=== PATIENT | female | born 1995 | race Caucasian/White ===

== ENCOUNTER 2018-12-30 07:36 | Outpatient (CLI) | payer OTHER ==
--- NOTE | 2018-12-30 09:09 | ULT ---
RIGHT UPPER QUADRANT ULTRASOUND: Date: 01-17-15, 12-30-18 Comparison: None. History: Transaminitis. Technique: Multiplanar grayscale sonographic imaging of the right upper quadrant obtained. FINDINGS: Imaged pancreas is grossly unremarkable, the tail partially obscured by bowel gas. No focal liver lesion or intrahepatic biliary dilatation is noted. The hepatic parenchyma is mildly e chogenic, suggesting a degree of hepatocellular disease, such as possible steatosis. There is a 1.1 c m echogenic focus with shadowing within the right lobe of the liver suggesting a granuloma. The patie nt is status post cholecystectomy. The common bile duct is dilated, measuring 8 mm. Right kidney thuy ure 10.8 cm craniocaudal dimension and demonstrates no stone, hydronephrosis or mass lesion. The prior right upper quadrant ultrasound performed 01-17-15 demonstrated a common bile duct of 4-5 mm in diameter. IMPRESSION: Status post cholecystectomy. Dilated common bile duct. This is more prominent than on the 01-17-15 exa mination at which time the CBD measured 5 mm. This could be reservoir affect associated with prior ch olecystectomy or could be on the basis of biliary dilatation on the basis of biliary obstruction. Cli nical correlation is essentially. If further imaging assessment is required, MRI/MRCP suggested. POS: [facility]
--- NOTE | 2018-12-30 09:27 | CT ---
CT ABDOMEN NONCONTRAST CT PELVIS NONCONTRAST: (urolithiasis protocol) DATE: 12/30/18 TIME: 0756 hours HISTORY: 23-year-old female with diagnosis of calculus of kidney and intermittent right-sided abdominal pain for a few weeks. COMPARISON: 03/02/15 CT with contrast. TECHNIQUE: IV injection of iodinated contrast media: none Oral contrast media: none FINDINGS: Other than for urolithiasis, the lack of IV and oral contrast limits the evaluation. Again noted are the cholecystectomy clips and the focal coarse calcification in the right lobe of the liver. No renal, ureteral, or bladder calculus is identified. No hydronephrosis. Appendix is not deon ntified with certainty. No signs of acute colonic diverticulitis, small bowel dilation, ascites, or p neumoperitoneum. Lung bases are grossly clear. Within the limitations of a noncontrast scan, no other abnormality is identified involving liver, abdominal aorta, kidneys, adrenals, pancreas, or spleen. IMPRESSION: 1. No urolithiasis or obstructive uropathy. 2. Status post cholecystectomy. 3. Focal dystrophic calcification in right lobe of liver. JN R POS: [facility]
== END 2018-12-30 07:37 | disposition home or self-care (01) ==
LOC: BICCT 07:36
PROVIDERS: ATTEND Family Medicine
DX: R74.0 Nonspecific elevation of levels of transaminase and lactic acid dehydrogenase [LDH] (principal); N20.0 Calculus of kidney; K76.89 Other specified diseases of liver; K83.8 Other specified diseases of biliary tract; Z90.49 Acquired absence of other specified parts of digestive tract
CPT/HCPCS: 74176; 76705

== ENCOUNTER 2020-05-19 06:33 | Outpatient (CLI) | payer OTHER ==
[2020-05-20 12:37] LABS: SARS-CoV-2 MS2 Positive; SARS-CoV-2 N Gene Negative; SARS-CoV-2 S Gene Negative; SARS-CoV-2 orf1ab Negative
== END 2020-05-19 06:34 | disposition home or self-care (01) ==
LOC: LABSCS 06:33
PROVIDERS: ATTEND Obstetrics & Gynecology
DX: Z01.812 Encounter for preprocedural laboratory examination (principal); Z11.59 Encounter for screening for other viral diseases
CPT/HCPCS: 87635; U0003

== ENCOUNTER 2020-05-23 05:33 | Inpatient (IN) | payer OTHER ==
[2020-05-23] MEDS ORDERED: hydrALAZINE 20 MG/ML VIAL SLOW IVP PRN ×2 (05:59→08:44)
[2020-05-23] MEDS ORDERED: Promethazine HCl 25 MG/ML VIAL IM PRN ×2 (05:59→08:32)
[2020-05-23] MEDS ORDERED: Ondansetron PF 4 MG/2 ML Vial IVP PRN ×3 (05:59→08:44)
[2020-05-23] MEDS ORDERED: Lactated Ringer's 1,000 ML IV SCH (05:59)
[2020-05-23] MEDS ORDERED: CEFAZOLIN 2 GM in Premix Bag 1 BAG IVPB SCH (06:00)
[2020-05-23] MEDS ORDERED: Bicitra 30 ML UDCUP PO SCH (06:00)
[2020-05-23 06:13] VITALS: BMI 31.5
[2020-05-23 06:18] LABS: Hemoglobin 13.7 g/dL (12.0-16.0); Mean Corpuscular Hemoglobin 29.3 pg (27.0-31.0); Mean Corpuscular Volume 86.1 fL (78.0-98.0); Mean Platelet Volume 8.5 fL (7.4-10.4); Platelet Count 279 thou/uL (130-400); RBC Distribution Width 13.8 % (11.5-14.5); Red Blood Cell (RBC) Count 4.69 mill/uL (4.20-5.40); White Blood Cell (WBC) Count 9.7 thou/uL (4.8-10.8)
[2020-05-23 06:56] LABS: HBSAg Index 0.17 S/CO (0-0.99); Hep B Surf Ag Non-Reactive S/CO (NonReactive)
[2020-05-23 06:57] LABS: Syphilis Antibody Nonreactive (Nonreactive); Syphilis Antibody Index 0.04 S/CO (<1.00 Non-Reactive)
[2020-05-23] MEDS ORDERED: MORPHINE 5 MG/10 ML PF VIAL ONE (07:11)
[2020-05-23] MEDS ORDERED: Fentanyl 100 MCG/2 ML VIAL ONE (07:11)
[2020-05-23] MEDS ORDERED: Dexamethasone 4 mg/ml Vial ONE (07:12)
[2020-05-23] MEDS ORDERED: EPHEDRINE 25 MG/5 ML SYRINGE ONE ×2 (07:12→08:04)
[2020-05-23] MEDS ORDERED: PHENYLEPHRINE-NS 100 MCG/ML 10 ML SYRINGE ONE (07:12)
[2020-05-23] MEDS ORDERED: Oxytocin 10 UNITS/ML VIAL ONE (07:12)
[2020-05-23] MEDS ORDERED: Ketorolac Tromethamine 30 MG/ML VIAL ONE (07:12)
[2020-05-23] MEDS ORDERED: Ondansetron PF 4 MG/2 ML Vial ONE (07:12)
[2020-05-23] MEDS ORDERED: Lidocaine 2% PF 5 ML VIAL ONE (07:16)
[2020-05-23] MEDS ORDERED: Atropine Sulfate 0.4 mg/1 ml Vial ONE (07:40)
[2020-05-23] MEDS ORDERED: Naloxone HCl 0.4 mg/ml Vial IVP PRN ×2 (08:32)
[2020-05-23] MEDS ORDERED: Naloxone HCl 0.4 mg/ml Vial IV PRN (08:32)
[2020-05-23] MEDS ORDERED: L&D-Morphine 4 MG/ML VIAL SLOW IVP PRN (08:32)
[2020-05-23] MEDS ORDERED: Ondansetron HCl/PF 4 MG/2 ML Vial IVP PRN (08:32)
[2020-05-23] MEDS ORDERED: Promethazine HCl 25 MG SUPP PR PRN (08:32)
[2020-05-23] MEDS ORDERED: diphenhydrAMINE 50 MG/ML VIAL IVP PRN (08:32)
[2020-05-23] MEDS ORDERED: Morphine 2 MG/ML SYRINGE SLOW IVP PRN (08:33)
[2020-05-23] MEDS ORDERED: Zolpidem Tartrate 5 MG TAB PO PRN (08:44)
[2020-05-23] MEDS ORDERED: Misoprostol 200 MCG TAB PR PRN (08:44)
[2020-05-23] MEDS ORDERED: Adacel (T-DAP) 0.5 ML SYRINGE IM ONE (08:44)
[2020-05-23] MEDS ORDERED: Acetaminophen 325 MG TAB PO PRN (08:44)
[2020-05-23] MEDS ORDERED: Bisacodyl 10 MG SUPP PR PRN (08:44)
[2020-05-23] MEDS ORDERED: diphenhydrAMINE 25 MG CAP PO PRN (08:44)
[2020-05-23] MEDS ORDERED: Lanolin Ointment 7 GM TUBE TOP PRN (08:44)
[2020-05-23] MEDS ORDERED: Simethicone Chewable 80 MG TAB PO PRN (08:44)
[2020-05-23] MEDS ORDERED: Communication Order-Pharmacy FS SCH (08:45)
[2020-05-23] MEDS ORDERED: Ketorolac Tromethamine 30 MG/ML VIAL IVP SCH (08:45)
[2020-05-23] MEDS ORDERED: Morphine 4 MG/ML VIAL ONE (10:28)
[2020-05-23] MEDS ORDERED: Morphine 4 MG/ML VIAL SLOW IVP PRN (10:45)
[2020-05-23] MEDS: Docusate Calcium (SURFAK) 240 MG CAP PO SCH ×2 (11:49→20:55)
[2020-05-23] MEDS: Ketorolac Tromethamine 30 MG/ML VIAL IVP SCH ×3 (11:50→20:54)
[2020-05-23] MEDS ORDERED: NS / Oxytocin 40 units/1000ml 1,000 ML ONE (12:48)
[2020-05-23] MEDS: Ferrous Sulfate 325 MG TAB PO SCH (16:12)
[2020-05-23] MEDS ORDERED: HYDROcodone/Acetaminophen 5/325 mg Tablet PO PRN ×2 (20:45)
[2020-05-23] MEDS ORDERED: Meperidine HCl/PF 25 MG/ML VIAL IM PRN (20:45)
[2020-05-24] MEDS: Ketorolac Tromethamine 30 MG/ML VIAL IVP SCH ×2 (03:16→08:29)
[2020-05-24 05:45] LABS: Hemoglobin 11.3 g/dL (12.0-16.0); Mean Corpuscular HGB CONC 31.3 g/dL (32.0-36.0); Mean Corpuscular Hemoglobin 27.7 pg (27.0-31.0); Mean Corpuscular Volume 88.3 fL (78.0-98.0); Mean Platelet Volume 8.3 fL (7.4-10.4); Platelet Count 235 thou/uL (130-400); Red Blood Cell (RBC) Count 4.07 mill/uL (4.20-5.40); White Blood Cell (WBC) Count 9.6 thou/uL (4.8-10.8)
[2020-05-24] MEDS: Docusate Calcium (SURFAK) 240 MG CAP PO SCH ×2 (08:19→21:20)
[2020-05-24] MEDS: Ferrous Sulfate 325 MG TAB PO SCH ×2 (08:19→16:53)
[2020-05-24] MEDS: Ibuprofen 800 MG TAB PO SCH ×2 (14:28→21:20)
[2020-05-25] MEDS: Ibuprofen 800 MG TAB PO SCH ×2 (05:37→13:30)
[2020-05-25 07:51] VITALS: BP 116/59; TEMP 97.9
[2020-05-25] MEDS: Ferrous Sulfate 325 MG TAB PO SCH (08:32)
[2020-05-25] MEDS: Docusate Calcium (SURFAK) 240 MG CAP PO SCH (09:42)
== END 2020-05-25 15:50 | disposition home or self-care (01) | DRG 787 ==
LOC: L&D 05:33 → 3SW 11:48
PROVIDERS: ADMIT Obstetrics & Gynecology; ATTEND Obstetrics & Gynecology
PROC: 10D00Z1 Extraction of Products of Conception, Low, Open Approach (ICD-10-PCS; principal; 2020-05-23)
DX: O32.1XX0 Maternal care for breech presentation, not applicable or unspecified (principal); O98.52 Other viral diseases complicating childbirth; O24.429 Gestational diabetes mellitus in childbirth, unspecified control; B00.9 Herpesviral infection, unspecified; O76 Abnormality in fetal heart rate and rhythm complicating labor and delivery; O24.410 Gestational diabetes mellitus in pregnancy, diet controlled; Z3A.39 39 weeks gestation of pregnancy; Z37.0 Single live birth
CPT/HCPCS: 36415; 51701; 76815; 85027; 86780; 86850; 86900; 86901; 87340; J0461; J0690; J1100; J1885; J2270; J2274; J2405; J2590; J3010